=== PATIENT | female | born 1965 | race Caucasian/White ===

== ENCOUNTER 2017-10-16 14:41 | Emergency (ER) | payer OTHER ==
[2017-10-16] MEDS ORDERED: Ondansetron HCl/PF 4 MG/2 ML Vial ONE (15:02)
[2017-10-16] MEDS ORDERED: Famotidine In NaCl 20 mg/50 ml Premix Bag ONE (15:09)
[2017-10-16 15:25] LABS: Bilirubin Moderate (Negative); Blood, Urine Trace (Negative); Clarity Cloudy (Clear); Glucose, Urine (Dipstick) Negative (Negative); Leukocyte Trace (Negative); Nitrite Negative (Negative); Protein, Urine (Dipstick) 100 mg/dL (Neg-Trace); Urobilinogen 0.2 mg/dL (0.2-1.0); pH, Urine 7.5 (5.0-9.0)
[2017-10-16 15:31] LABS: Bacteria/HPF 1+ HPF (None Seen); Squamous Epithelial 0-3 HPF (0-3); WBC/HPF 0-3 HPF (0-3)
[2017-10-16 15:35] LABS: ALT (SGPT) 20 U/L (8-55); AST (SGOT) 22 U/L (5-34); Albumin 4.3 g/dL (3.5-5.0); Alkaline Phosphatase 93 U/L (40-150); Anion Gap 19 mmol/L (10-20); BUN (Urea Nitrogen) 8 mg/dL (9.8-20.1); Bilirubin, Total 0.5 mg/dL (0.2-1.2); Calc. Creatinine Clearance 0 mL/min (70-130); Calcium 10.2 mg/dL (7.8-10.44); Carbon Dioxide 26 mmol/L (22-29); Chloride 102 mmol/L (98-107); Estimated GFR-MDRD 75; Globulin 3.1 g/dL (2.4-3.5); Glucose 102 mg/dL (70-105); Lipase 18 U/L (8-78); Potassium 3.2 mmol/L (3.5-5.1); Protein, Total 7.4 g/dL (6.0-8.3); Sodium 144 mmol/L (136-145)
[2017-10-16 15:40] LABS: Hemoglobin 14.8 g/dL (12.0-16.0); Mean Corpuscular HGB CONC 35.4 g/dL (32.0-36.0); Mean Corpuscular Hemoglobin 30.8 pg (27.0-31.0); Mean Platelet Volume 6.9 fL (7.4-10.4); Platelet Count 270 thou/uL (130-400); RBC Distribution Width 13.1 % (11.5-14.5); Red Blood Cell (RBC) Count 4.81 mill/uL (4.20-5.40); White Blood Cell (WBC) Count 11.3 thou/uL (4.8-10.8)
[2017-10-16 15:42] LABS: Lymphocytes 15 % (21-51); MDiff Complete? YES; Monocytes 1 % (0-10); Neutrophil 82 % (42-75); Reactive Lymphocytes 1 % (0-10)
[2017-10-16] MEDS ORDERED: Ketorolac Tromethamine 30 MG/ML VIAL ONE (15:43)
[2017-10-16] MEDS ORDERED: Water For Injection,Sterile 20 ML ONE (16:09)
[2017-10-16] MEDS ORDERED: cefTRIAXone\\ROCEPHIN 1 GM VIAL ONE (16:09)
== END 2017-10-16 16:45 | disposition home or self-care (01) ==
LOC: BURERS 14:41
DX: H66.92 Otitis media, unspecified, left ear (principal); E03.9 Hypothyroidism, unspecified; F32.9 Major depressive disorder, single episode, unspecified; F17.210 Nicotine dependence, cigarettes, uncomplicated; Z79.899 Other long term (current) drug therapy
CPT/HCPCS: 80053; 81003; 81015; 83690; 85025; 87086; 96361; 96365; 96375; J0696; J1885; J2405

== ENCOUNTER 2018-12-28 09:50 | Outpatient (CLI) | payer OTHER ==
--- NOTE | 2018-12-28 17:43 | RAD ---
CHEST TWO VIEWS: 12/28/18 Comparison is made with a 03/26/18 study. The heart is normal in size and the lungs are clear. No infi ltrate or effusion was seen. The mediastinum appears normal and the trachea is midline. IMPRESSION: No acute thoracic finding. POS: HOME
== END 2018-12-28 09:51 | disposition home or self-care (01) ==
LOC: BURRAD 09:50
PROVIDERS: ATTEND Family Medicine
DX: Z01.818 Encounter for other preprocedural examination (principal)
CPT/HCPCS: 71046

== ENCOUNTER 2019-02-02 11:52 | Outpatient (CLI) | payer OTHER ==
--- NOTE | 2019-02-02 18:22 | RAD ---
RIGHT LEG 02/02/19 Multiple AP and lateral views are provided. The patient's most recent prior x-rays are said to be els ewhere. I do not have them for comparison. I do have a 09/09/17 study of the ankle to compare with. There is a large external fixation device in place today. Old changes are seen in the distal fibula f rom old fractures. The tibiotalar joint is widened and the articular surface of the talus is very irr egular suggesting osteonecrosis of some of the bony surface. A small calcaneal spur was noted. 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 POS: HOME
== END 2019-02-02 11:53 | disposition home or self-care (01) ==
LOC: BURRAD 11:52
DX: Z51.89 Encounter for other specified aftercare (principal)

== ENCOUNTER 2019-10-27 17:44 | Emergency (ER) | payer OTHER ==
[2019-10-27] MEDS ORDERED: Ketorolac Tromethamine 30 MG/ML VIAL ONE (18:18)
[2019-10-27] MEDS ORDERED: Bupivacaine 0.5% 10 ML VIAL ONE (18:23)
--- NOTE | 2019-10-27 20:46 | RAD ---
RIGHT FOOT THREE VIEWS: 10/27/19 Comparison is made with a 09/09/17 study. The bones are osteoporotic. There is an acute fracture of the proximal phalanx of the great toe. the distal fragment is angulated towards the dorsum of the foot. The remaining bones appeared intact. Old postoperative changes are seen in the distal tibia and fibula with obliteration of a normal ankle marysol int. IMPRESSION: Acute fracture of the proximal phalanx of the great toe with angulation. POS: HOME
== END 2019-10-27 18:56 | disposition home or self-care (01) ==
LOC: BURERS 17:44
DX: S92.411A Displaced fracture of proximal phalanx of right great toe, initial encounter for closed fracture (principal); E03.9 Hypothyroidism, unspecified; F32.9 Major depressive disorder, single episode, unspecified; F17.210 Nicotine dependence, cigarettes, uncomplicated; W55.19XA Other contact with horse, initial encounter
CPT/HCPCS: 28490; 96372; J1885; J3490

== ENCOUNTER 2021-08-13 17:30 | Outpatient (CLI) | payer OTHER | END 2021-08-13 17:31 | disposition home or self-care (01) | LOC: BURRAD 17:30 | PROVIDERS: ATTEND Physician Assistant Medical | DX: M47.812 Spondylosis without myelopathy or radiculopathy, cervical region (principal); M47.816 Spondylosis without myelopathy or radiculopathy, lumbar region; M51.36 Other intervertebral disc degeneration, lumbar region; Z98.1 Arthrodesis status | CPT/HCPCS: 72050; 72110 ==